=== PATIENT | female | born 1985 | race Caucasian/White ===

== ENCOUNTER 2017-08-09 23:13 | Emergency (ER) | payer BC ==
--- NOTE | 2017-08-09 23:45 | EDM.PDOC ---
ED HPI GENERAL MEDICAL PROBLEM - General Chief Complaint: Upper Extremity Injury/Pain Stated Complaint: HURT RIGHT HAND Time Seen by Provider: 08/09/17 23:42 - History of Present Illness INITIAL COMMENTS - FREE TEXT/NARRATIVE: HISTORY AND PHYSICAL: History of present illness: Patient 32-year-old female presents with internal acute injury to her right hand got slammed in a door she denies any other trauma or concern. Review of systems: As per history of present illness and below otherwise all systems reviewed and negative. Past medical history: As per history of present illness and as reviewed below otherwise noncontributory. Surgical history: As per history of present illness and as reviewed below otherwise noncontributory. Social history: No reported history of drug or alcohol abuse. Family history: As per history of present illness and as reviewed below otherwise noncontributory. Physical exam: HEENT: Atraumatic, normocephalic, pupils reactive, negative for conjunctival pallor or scleral icterus, mucous membranes moist, throat clear, neck supple, nontender, trachea midline. Lungs: Clear to auscultation, breath sounds equal bilaterally, chest nontender. Heart: S1S2, regular, negative for clicks, rubs, or JVD. Abdomen: Soft, nondistended, nontender. Negative for masses or hepatosplenomegaly. Negative for costovertebral tenderness. Pelvis: Stable nontender. Genitourinary: Deferred. Rectal: Deferred. Extremities: Right hand has an abrasion on dorsal aspect with a hematoma is mild tenderness to palpation no crepitation or gross deformity CMS in neurovascular exam are normal. Neuro: Awake, alert, oriented. Cranial nerves II through XII unremarkable. Cerebellum unremarkable. Motor and sensory unremarkable throughout. Exam nonfocal. Diagnostics: X-ray right hand Therapeutics: To be determined Impression: #1 acute right hand injury ( blunt force trauma) Definitive disposition and diagnosis as appropriate pending reevaluation and review of above. 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 ED EXAM, GENERAL - Physical Exam Exam: See Below (See dictation) Course - Vital Signs Last Recorded V/S: Last Vital Signs Temp 36.1 C 08/09/17 23:24 Pulse 100 08/09/17 23:24 Resp 12 08/09/17 23:24 BP 136/86 08/09/17 23:24 Pulse Ox 96 08/09/17 23:24 - Orders/Labs/Meds Orders: Active Orders 24 hr Category Date Time Status Hand 2V Rt [CR] Stat Exams 08/09/17 23:43 Ordered Departure - Departure Time of Disposition: 23:45 Disposition: Home, Self-Care 01 Condition: Good Clinical Impression: Hand injury - Discharge Information Referrals: PCP,None [Primary Care Provider] - Additional Instructions: The following information is given to patients seen in the emergency department who are being discharged to home. This information is to outline your options for follow-up care. We provide all patients seen in our emergency department with a follow-up referral. The need for follow-up, as well as the timing and circumstances, are variable depending upon the specifics of your emergency department visit. If you don't have a primary care physician on staff, we will provide you with a referral. We always advise you to contact your personal physician following an emergency department visit to inform them of the circumstance of the visit and for follow-up with them and/or the need for any referrals to a consulting specialist. The emergency department will also refer you to a specialist when appropriate. This referral assures that you have the opportunity for followup care with a specialist. All of these measure are taken in an effort to provide you with optimal care, which includes your followup. Under all circumstances we always encourage you to contact your private physician who remains a resource for coordinating your care. When calling for followup care, please make the office aware that this follow-up is from your recent emergency room visit. If for any reason you are refused follow-up, please contact the [facility] emergency department at and asked to speak to the emergency department charge nurse. Follow-up primary medical doctor as needed as discussed Motrin/Tylenol as directed and return as needed as discussed - My Orders Last 24 Hours: My Active Orders 08/09/17 23:43 Hand 2V Rt [CR] Stat - Assessment/Plan Last 24 Hours: My Active Orders 08/09/17 23:43 Hand 2V Rt [CR] Stat
--- NOTE | 2017-08-12 11:47 | CR ---
EXAM DATE: 08/09/17 PATIENT'S AGE: 32 Patient: TAE JAMESON Facility: [place], [place] Site . Site : 1985 Study: XRay Extremity Right [id number]/28/2018 12:01:59 AM Ordering Physician: Willian Gonzalez Final Report: INDICATION: HAND WAS SLAMMED IN DOOR COMPARISON: None FINDINGS: Bones: No fractures or bone lesions. Joint spaces: Unremarkable. Soft tissues: Unremarkable. IMPRESSION: No acute bony abnormality Dictated by Suraj Barrett MD @ 08/10/2017 12:08:01 AM Dictated by: Suraj Barrett MD @ 08/10/2017 00:08:10 (Electronic Signature) Report Signed by Proxy. [facility]illy
== END 2017-08-10 00:30 | disposition home or self-care (01) ==
LOC: MW.ED 23:13
DX: S60.221A Contusion of right hand, initial encounter (principal); F17.210 Nicotine dependence, cigarettes, uncomplicated; W23.0XXA Caught, crushed, jammed, or pinched between moving objects, initial encounter; Z79.82 Long term (current) use of aspirin
CPT/HCPCS: 73130-26-RT; 73130-RT; 99282; 99283